=== PATIENT | female | born 1950 | race Caucasian/White ===

== ENCOUNTER 2016-11-11 02:15 | Emergency (ER) | payer BC, OTHER ==
[2016-11-11 02:32] LABS: Hematocrit 38 % (35-47); Hemoglobin 12.7 g/dl (12.0-16.0); Mean Corpuscular HGB Conc 34 g/dl (31-36); Mean Corpuscular Hemoglobin 28 pg (27-31); Mean Corpuscular Volume 82 fL (80-97); Mean Platelet Volume 9 um3 (7.4-10.4); Red Blood Count 4.56 10^6/ul (4.0-5.4); Red Cell Distribution Width 13 % (10.5-15); White Blood Count 7.3 10^3/ul (3.5-10.8)
[2016-11-11 02:49] LABS: Albumin 4.4 g/dL (3.2-5.2); BUN/Creatinine Ratio 28.8 (8-20); Calcium 9.7 mg/dL (8.6-10.3); EGFR African American 115.6 (>60); EGFR Non-African American 89.9 (>60); Globulin 2.7 g/dL (2-4); Potassium 4.2 mmol/L (3.5-5.0); Total Bilirubin 0.5 mg/dL (0.2-1.0); Total Protein 7.1 g/dL (6.4-8.9)
--- NOTE | 2016-11-11 03:31 | ED ---
Elie Jacob Salem, scribed for Nancy Figueredo MD on 11/11/16 at 0226 . HPI Chest Pain - HPI Summary HPI Summary: Patient is a 66 y/o female who presents to the ED with intermittent CP since 2030 today. She reports tightness in the throat for 10-15 minutes at 2030 and for 20 minutes at 0030. She denies calf pain or pain radiating into her arm or back. She denies previous DVT, PE, or recent traveling. She received [employer] per EMS. PMHx is significant for hyperthyroidism. - History of Current Complaint Time Seen by Provider: 11/11/16 02:25 Hx Obtained From: Patient Onset/Duration: Started Hours Ago Timing: Intermittent Initial Severity: Moderate Current Severity: Moderate Chest Pain Radiates: No Aggravating Factor(s): Nothing Alleviating Factor(s): Nothing Associated Signs and Symptoms: Positive: Chest Pain, Other: - No calf pain. PMH/Surg Hx/FS Hx/Imm Hx Endocrine/Hematology History: Denies: Hx Diabetes Cardiovascular History: Denies: Hx Deep Vein Thrombosis, Hx Embolism Musculoskeletal History: Denies: Hx Osteoporosis - Cancer History Hx Chemotherapy: No Hx Radiation Therapy: No - Family History Known Family History: Positive: Cardiac Disease - Father [place] at 45 y/o. , Diabetes - Father. - Social History Lives: With Family - . Alcohol Use: Occasionally Hx Tobacco Use: No Review of Systems Positive: Chest Pain Musculoskeletal: Other - No calf pain or radiating pain. All Other Systems Reviewed And Are Negative: Yes Physical Exam Triage Information Reviewed: Yes Vital Signs On Initial Exam: Temp Pulse Resp BP SpO2 FiO2 Vital Signs Reviewed: Yes Appearance: Positive: Well-Appearing, No Pain Distress Skin: Positive: Warm, Skin Color Reflects Adequate Perfusion, Dry Eyes: Positive: EOMI, IVON Neck: Positive: Supple, Nontender Respiratory/Lung Sounds: Positive: Clear to Auscultation, Breath Sounds Present. Negative: Rales, Rhonchi, Wheezes Cardiovascular: Positive: RRR. Negative: Murmur, Rub Abdomen Description: Positive: Nontender, Soft. Negative: Distended, Guarding Bowel Sounds: Positive: Present Musculoskeletal: Positive: Strength/ROM Intact. Negative: Edema Left, Edema Right Neurological: Positive: Sensory/Motor Intact, Alert, Oriented to Person Place, Time, CN Intact II-III Psychiatric: Positive: Affect/Mood Appropriate Diagnostics - Vital Signs Vital Signs Temp Pulse Resp BP Pulse Ox 11/11/16 03:02 97.2 F 11/11/16 03:00 63 22 97 11/11/16 02:50 97.6 F 62 18 114/60 95 11/11/16 02:30 66 22 114/60 99 11/11/16 02:23 67 14 97 - Laboratory Lab Results: Lab Results 11/11/16 11/11/16 11/11/16 Range/Units 02:20 02:20 02:20 WBC 7.3 (3.5-10.8) 10^3/ul RBC 4.56 (4.0-5.4) 10^6/ul Hgb 12.7 (12.0-16.0) g/dl Hct 38 (35-47) % MCV 82 (80-97) fL MCH 28 (27-31) pg MCHC 34 (31-36) g/dl RDW 13 (10.5-15) % Plt Count 188 (150-450) 10^3/ul MPV 9 (7.4-10.4) um3 Neut % (Auto) 54.5 (38-83) % Lymph % (Auto) 33.5 (25-47) % [place] % (Auto) 8.7 (1-9) % Eos % (Auto) 2.3 (0-6) % Baso % (Auto) 1.0 (0-2) % Absolute Neuts (auto) 4.0 (1.5-7.7) 10^3/ul Absolute Lymphs (auto) 2.5 (1.0-4.8) 10^3/ul Absolute Monos (auto) 0.6 (0-0.8) 10^3/ul Absolute Eos (auto) 0.2 (0-0.6) 10^3/ul Absolute Basos (auto) 0.1 (0-0.2) 10^3/ul Absolute Nucleated RBC 0 10^3/ul Nucleated RBC % 0 Sodium 137 (133-145) mmol/L Potassium 4.2 (3.5-5.0) mmol/L Chloride 102 (101-111) mmol/L Carbon Dioxide 30 (22-32) mmol/L Anion Gap 5 (2-11) mmol/L BUN 19 (6-24) mg/dL Creatinine 0.66 (0.51-0.95) mg/dL Est GFR ( Amer) 115.6 (>60) Est GFR (Non-Af Amer) 89.9 (>60) BUN/Creatinine Ratio 28.8 H (8-20) Glucose 89 (70-100) mg/dL Lactic Acid 0.5 (0.5-2.0) mmol/L Calcium 9.7 (8.6-10.3) mg/dL Total Bilirubin 0.50 (0.2-1.0) mg/dL AST 24 (13-39) U/L ALT 18 (7-52) U/L Alkaline Phosphatase 69 (34-104) U/L Troponin I 0.00 (<0.04) ng/mL Total Protein 7.1 (6.4-8.9) g/dL Albumin 4.4 (3.2-5.2) g/dL Globulin 2.7 (2-4) g/dL Albumin/Globulin Ratio 1.6 (1-3) Result Diagrams: 11/11/16 02:20 11/11/16 02:20 Lab Statement: Any lab studies that have been ordered have been reviewed, and results considered in the medical decision making process. - EKG 0214 EKG Interpretation: NSR @ 64 bpm. Re-Evaluation - Re-Evaluation First Eval Re-Evaluation Time: 03:27 Change: Improved Chest Pain Course/Dx - Course Course Of Treatment: 66 yo female with one risk factor for cp, ekg normal, first trop neg. 2nd trop will be at 6am pt will be signed out to Dr. Hinton and will go home if it is negative. - Diagnoses Provider Diagnoses: Chest pain Discharge - Discharge Plan Condition: Stable Disposition: OTHER Discharge Disposition Comment: disposition to be determined by Dr. Hinton The documentation as recorded by the Elie dick Salem accurately reflects the service I personally performed and the decisions made by , Nancy Figueredo MD.
--- NOTE | 2016-11-11 07:52 | RAD ---
INDICATION: Chest pain. COMPARISON: There are no prior studies available for comparison. TECHNIQUE: A portable view of the chest was obtained. FINDINGS: Cardiac and mediastinal contours appear to be within normal limits. The lungs are underinflated and clear. No pleural effusion is seen. IMPRESSION: NO EVIDENCE FOR ACUTE DISEASE.
[2016-11-11 08:58] VITALS: BP 110/57
== END 2016-11-11 08:36 | disposition home or self-care (01) ==
LOC: ED 02:15
DX: R07.9 Chest pain, unspecified (principal)
CPT/HCPCS: 36415; 71010; 80053; 83605; 84484; 85025; 93005; 99284

== ENCOUNTER 2019-01-08 10:33 | Day surgery (SDC) | payer MEDICARE, BC ==
--- NOTE | 2019-01-03 10:40 | HP ---
PREOPERATIVE HISTORY AND PHYSICAL: DATE OF ADMISSION/SURGERY: 01/08/19 ATTENDING PHYSICIAN: Dr. Linda Day* (KIMBERLY Canales). CHIEF COMPLAINT: Left thumb pain. HISTORY OF PRESENT ILLNESS: The patient is a 68-year-old female, who injured her left thumb when she was walking her puppy and fell on uneven snow jamming her left thumb. Date of injury 11/09/18. Since this time, she has had persistent pain, swelling, and difficulty grasping and pinching. She states the pain is roughly 5/10. She has not been wearing a brace. She denies numbness or tingling. She denies other bodily injury upon her fall. She was evaluated by Dr. Day on 01/02/19 and was found to have an ulnar collateral ligament tear of the left thumb. It was recommended she undergo surgical fixation of this injury and she has elected to proceed. Surgery is scheduled for 01/08/[address] Day. PAST MEDICAL HISTORY: Significant for osteoarthritis in her hands, hypothyroidism. PAST SURGICAL HISTORY: , 04/15/80. She denies prior history of pulmonary embolism or DVT. Denies anesthesia complications. CURRENT MEDICATIONS: 1. Levothyroxine 100 mcg 1 p.o. daily. 2. Multivitamin p.o. daily. 3. Fish oil 500 mg 1 tablet p.o. twice daily. 4. Acidophilus 100 mg 1 capsule daily. 5. GenTeal eye drops and Systane eye drops daily. 6. Ciclopirox solution 8% daily for foot fungus. 7. Xiidra 2 drops daily for dry eye. ALLERGIES: To ADHESIVES. She denies latex allergy. FAMILY HISTORY: Significant for diabetes, heart disease, hypertension, rheumatoid arthritis, MS, and lupus. SOCIAL HISTORY: The patient lives with her spouse. She drinks roughly 7 to 9 alcoholic beverages per week. She exercises regularly. She is right-hand dominant. She works as a [employer]. REVIEW OF SYSTEMS: Negative for cephalic, cardiovascular, respiratory, gastrointestinal, genitourinary, other musculoskeletal, skin, neurologic, endocrine, or hematologic symptoms. PHYSICAL EXAMINATION GENERAL: The patient is alert and oriented x3, in no acute distress, pleasant and cooperative, appropriate dress and affect. VITAL SIGNS: Height 63 inches, weight 129 pounds. BP 120/80, respirations 14, temperature 96.5. Pain level 5. BMI 22.8. HEENT: PERRLA. LUNGS: Clear to auscultation without wheeze. HEART: Regular rate and rhythm without murmur. ABDOMEN: Normoactive bowel sounds x4 quadrants. No tenderness. EXTREMITIES: Full circulation, sensation throughout both upper and lower extremities. Examination of the left upper extremity/left thumb: There is swelling at the MP joint. She has marked instability of the ulnar collateral ligament, tenderness to palpation at the insertion of the UCL. She has some tenderness at the CMC joint. She has flexion of the IP and MP joints without much difficulty. She has full extension of her thumb. Her circulation and sensation is intact. Her skin is intact. IMPRESSION: Left thumb ulnar collateral ligament tear. PLAN: The patient has failed conservative management and she continues to have significant pain and swelling. She has elected to proceed with ulnar collateral ligament repair with Dr. Day on 01/08/19. Risks and benefits of the procedure were fully discussed by Dr. Day today. She will follow up in roughly 10 days postoperatively. KIMBERLY CANALES [id number]/[facility] #: [id number] KILEY
[~2019-01-08 10:33] MED LIST: Buffered Lidocaine 1% SYRIN* 1 ML/SYRINGE INTRADERM ONE; Dexamethasone TAB* 4 MG PO ONE; DiMENhydriNATE IV* 50 MG/ML VIAL IV PUSH PRN; Famotidine IV* 10 MG/ML 2 ML (20 mg) IV ONE; HYDROmorphone INJ1* 1 MG/ML SYRINGE IV PRN; Lactated Ringers 1000 ML Bag* 1,000 ML IV SCH; Naloxone* 0.4 MG/ML 1 ML VIAL IV PRN; Ondansetron TAB* 4 MG PO ONE; PROCHLORPERAZINE INJ 5 MG/ML 2 ML VIAL IV PRN; Scopolamine 1.5 mg* PATCH TRANSDERM PRN; fentaNYL* 50 MCG/ML 2 ML VIAL (100 MCG VIAL) IV PRN; oxyCODONE/Acetamin 5/325 MG* TAB PO PRN
[2019-01-08] MEDS ORDERED: Ondansetron ODT TAB* 4 MG ONE (10:50)
[2019-01-08] MEDS ORDERED: Dexamethasone TAB* 4 MG ONE (10:50)
[2019-01-08] MEDS ORDERED: ceFAZolin 2 GM PREMIX in ORs 2 GM/50 ML BAG IVPB ONE (10:50)
[2019-01-08] MEDS ORDERED: Famotidine IV* 10 MG/ML 2 ML (20 mg) ONE (10:50)
[2019-01-08] MEDS ORDERED: Midazolam* 1 MG/ML 5 ML VIAL (5 MG) ONE (11:17)
[2019-01-08] MEDS ORDERED: fentaNYL* 50 MCG/ML 2 ML VIAL (100 MCG VIAL) ONE (11:17)
[2019-01-08] MEDS ORDERED: KETAMINE HCL* 50 MG/ML 10 ML VIAL ONE (11:17)
[2019-01-08] MEDS ORDERED: Lidocaine 0.5%* 50 ML SDV ONE (11:38)
[2019-01-08] MEDS ORDERED: Bupivacaine 0.5% SDV PF* 30ML VIAL ONE (11:56)
[2019-01-08] MEDS ORDERED: Propofol* 10 MG/ML 20 ML BTL ONE (12:26)
[2019-01-08] MEDS ORDERED: Ketorolac INJ* 30 MG/ML 1 ML VIAL ONE (12:26)
[2019-01-08] MEDS ORDERED: Lidocaine 2% PF * 5 ML VIAL ONE (12:26)
[2019-01-08 13:38] VITALS: BP 99/43
--- NOTE | 2019-01-09 23:11 | OP ---
DATE OF OPERATION: 01/08/19 [facility] DATE OF : 52 SURGEON: Linda Day MD. WATER TREATMENT PLANT REPAIRER: KIMBERLY Vargas. ANESTHESIA: IV regional. PRE-OP DIAGNOSIS: Left thumb ulnar collateral ligament tear. POSTS-OP DIAGNOSIS: Left thumb ulnar collateral ligament tear. OPERATIVE PROCEDURE: Left thumb ulnar collateral ligament repair. ESTIMATED BLOOD LOSS: Zero. TOURNIQUET TIME: About 25 minutes. INDICATION FOR PROCEDURE: Kinza is a 68-year-old female who has pain in her left thumb after an injury with her dog's leash. This occurred about 5 weeks ago. She saw her primary care doctor. They did an x-ray and it was negative for fracture. She was evaluated in my office several weeks later because of persistent pain and instability of her thumb. She has been wearing a brace. On physical exam, she had marked radial deviation with stressing her ulnar collateral ligament and an obvious ulnar collateral ligament tear. She presents for ulnar collateral ligament repair. DESCRIPTION OF PROCEDURE: The patient was brought to the operating, was given an IV regional anesthetic with a tourniquet around her left forearm. The skin of the left hand and forearm were prepped and draped in usual sterile fashion. A longitudinal incision made on the ulnar aspect of the MP joint and we dissected bluntly through the subcutaneous tissue. Branches of the radial sensory nerve were located and were retracted by the actuarial assistant, Jeannine Cr. The adductor aponeurosis was incised longitudinally and there was a completely ruptured ulnar collateral ligament, which was in good condition. The insertion on the proximal phalanx was roughened with a curette and then a hole was drilled for a single mini Mitek suture anchor. The anchor was placed and the sutures were used to reapproximate the ligament to the proximal phalanx. The adductor aponeurosis was then repaired over top of the ligament with 2-0 Ethibond suture. Skin edges were reapproximated with 4-0 nylon suture. The wound was dressed with Xeroform, 4x4, Webril and a thumb spica splint. The patient tolerated the procedure well and was brought to the recovery room in good condition. [id number]/[facility] #: [id number] [facility]
[2019-01-11] MEDS ORDERED: Scopolamine PATCH Remove* 1 NOTE MISC PATCH OFF ONE (05:59)
== END 2019-01-08 13:32 | disposition home or self-care (01) ==
LOC: OREAST 10:33
PROVIDERS: ATTEND Orthopaedic Surgery
DX: S63.642A Sprain of metacarpophalangeal joint of left thumb, initial encounter (principal); E03.9 Hypothyroidism, unspecified; W19.XXXA Unspecified fall, initial encounter; Y93.K1 Activity, walking an animal; Y92.9 Unspecified place or not applicable
CPT/HCPCS: A9270-GY; C1713; J0690; J1885; J2250; J2704; J3010; J3490; J8540

== ENCOUNTER 2019-01-21 18:46 | Emergency (ER) | payer MEDICARE, BC ==
--- OUTSIDE RECORDS SUMMARY | 2019-01-21 18:55 | XMS REPORT | Continuity of Care Document ---
:1950 External Reference #:[id number] Author Name Eboni Kingsley Care Team Providers Name Role Phone Yanira Palafox MD Primary Care Physician Unavailable Payers Date Identification Numbers Payment Provider Subscriber Policy Number: [id number] Medicare Kinza Castorena PayID: [id number] [address] [place] [address] Policy Number: [id number] [facility] Ian Castorena PayID: [id number] [address] [place] [address] Advance Directives Description No Information Available Problems Description No Information Family History Date Family Member(s) Observation Comments General Diabetes General Heart Disease General Hypertension General Rheumatoid Arthritis General Multiple Sclerosis (MS) General Lupus Social History Type Date Description Comments Sex Unknown Lives With Spouse Occupation Currently Working ETOH Use Occasionally consumes alcohol Tobacco Use Start: Unknown Patient has never smoked Smoking Status Reviewed: 01/17/19 Patient has never smoked Exercise Type/Frequency Exercises regularly Allergies, Adverse Reactions, Alerts Active Allergies Reaction Severity Comments Date Latex 04/18/2017 Medications Active Medications SIG Qnty Indications Ordering Date Provider Martin Unknown 5% Solution Levothyroxine Sodium 1 by mouth every day Unknown 100mcg Tablets Multi Vitamin 1 by mouth every day Unknown Tablets Fish Oil 1 by mouth twice a Unknown 500mg Capsules day(pt is now taking lovaza) Cod Liver Oil 1 by mouth every day Unknown 1000mg Capsules Acidophilus take one Unknown 100mg capsule/tablet daily Capsules by mouth with lactobacillus Ciclopirox Unknown Genteal Unknown History Medications [place] one tab by mouth 15tabs Linda Day, 01/08/2019 - 5-325mg every 4-6 hours M.D. 01/16/2019 Tablets as needed pain Medications Administered in Office Medication SIG Qnty Indications Ordering Provider Date Celestone 3 mg and 3mg Noni BlountBrantSky, 08/09/2010 Injection M.DUrsula Immunizations Description No Information Available Vital Signs Date Vital Result Comment 01/17/2019 10:26am Height 63 inches 5'3" Weight 129.00 lb BP Systolic 118 mmHg BP Diastolic 78 mmHg Respiratory Rate 14 /min Body Temperature 96.3 F Pain Level 0 BMI (Body Mass Index) 22.8 kg/m2 01/02/2019 11:28am Height 63 inches 5'3" Weight 129.00 lb BP Systolic 120 mmHg BP Diastolic 80 mmHg Respiratory Rate 14 /min Body Temperature 96.5 F Pain Level 5 BMI (Body Mass Index) 22.8 kg/m2 07/04/2017 1:19pm Height 63 inches 5'3" Weight 127.00 lb Heart Rate 63 /min Respiratory Rate 16 /min Body Temperature 97.7 F Pain Level 3 BMI (Body Mass Index) 22.5 kg/m2 05/30/2017 1:55pm Height 63 inches 5'3" Weight 127.00 lb BP Systolic 110 mmHg BP Diastolic 69 mmHg Respiratory Rate 15 /min Pain Level 3 BMI (Body Mass Index) 22.5 kg/m2 04/18/2017 3:28pm Height 63 inches 5'3" Weight 127.00 lb BP Systolic 106 mmHg BP Diastolic 62 mmHg Respiratory Rate 18 /min Body Temperature 97.8 F Pain Level 3 BMI (Body Mass Index) 22.5 kg/m2 Results Description No Information Available Procedures Date Code Description Status 08/09/2010 36793 Rad Exam; Hand Comp Completed 08/09/2010 14231 Inject/Drain Joint/Bursa Small W/O US Completed Encounters Type Date Location Provider Dx Diagnosis Office Visit 01/02/2019 [facility] S63.642A Sprain of 11:00a [facility] metacarpophalangeal C.M.A. joint of left thumb, init Office Visit 07/04/2017 [facility]opedic Jai Bella S92.514A Nondisp fx of proximal 1:15p [facility] phalanx of right lesser C.M.A. toe(s), init Office Visit 05/30/2017 [facility]opedic Jai Bella S92.514D Nondisp fx of prox 1:45p [facility] phalanx of r less C.M.A. toe(s), 7thD Office Visit 04/18/2017 [facility]opedic Jai Bella S92.514A Nondisp fx of proximal 3:00p [facility] phalanx of right lesser C.M.A. toe(s), init Office Visit 08/09/2010 Orthopedic Noni 715.94 Osteoarthrosis Unspec 10:00a [facility] V[facility] Or Localized Hand AshlieMElijah Vick Plan of Treatment Future Appointment(s):02/07/2019 9:45 am - Linda Day M.D. at [facility]01/17/2019 - Linda Day M.D.S63.642D Sprain of metacarpophalangeal joint of left thumb, subsequenFollow up:Follow up: 3 weeks
--- OUTSIDE RECORDS SUMMARY | 2019-01-21 18:55 | XMS REPORT | Continuity of Care Document ---
:1950 External Reference #:[id number] Author Name Eboni Kingsley Care Team Providers Name Role Phone Yanira Palafox MD Primary Care Physician Unavailable Payers Date Identification Numbers Payment Provider Subscriber Policy Number: [id number] Medicare Kinza Castorena PayID: [id number] [address] [place] [address] Policy Number: [id number] [facility] Ian Castorena PayID: [id number] [address] [place] [address] Advance Directives Description No Information Available Problems Description No Information Family History Date Family Member(s) Observation Comments General Diabetes General Heart Disease General Hypertension General Rheumatoid Arthritis General Multiple Sclerosis (MS) General Lupus Social History Type Date Description Comments Sex Unknown Lives With Spouse Occupation Currently Working ETOH Use Occasionally consumes alcohol Tobacco Use Start: Unknown Patient has never smoked Smoking Status Reviewed: 01/02/19 Patient has never smoked Exercise Type/Frequency Exercises [...] mouth with lactobacillus Ciclopirox Unknown Genteal Unknown Medications Administered in Office Medication SIG Qnty Indications Ordering Provider Date Celestone 3 mg and 3mg Noni Vieira, 08/09/2010 Injection M.D. Immunizations Description No Information Available Vital Signs Date Vital Result Comment 01/02/2019 11:28am Height 63 inches 5'3" Weight [...] Available Procedures Date Code Description Status 08/09/2010 51000 Rad Exam; Hand Comp Completed 08/09/2010 27296 Inject/Drain Joint/Bursa Small W/O US Completed Encounters Type Date Location Provider Dx Diagnosis Office Visit 07/04/2017 Orthopedic Jai Bella S92.514A Nondisp fx of 1:15p [facility] proximal phalanx of C.M.A. right lesser toe(s), init Office Visit 05/30/2017 [facility]opedic Jai Bella S92.514D Nondisp fx of prox 1:45p [facility] phalanx of r less C.M.A. toe(s), 7thD Office Visit 04/18/2017 Orthopedic Jai Bella S92.514A Nondisp fx of 3:00p [facility] proximal phalanx of C.M.A. right lesser toe(s), init Office Visit 08/09/2010 Orthopedic Noni 715.94 Osteoarthrosis 10:00a [facility] Je Vieira Or [facility]ick [facility] Plan of Treatment Future Appointment(s):01/08/2019 11:45 am - Linda Day M.D.01/17/2019 10: 15 am - Linda Day M.D. at [facility]01/02/2019 - Linda Day M.D.S63.642A Sprain of metacarpophalangeal joint of left thumb , initial eFollow up:Follow up: 9-10 days postop
[2019-01-21 18:58] VITALS: BP 123/62
--- NOTE | 2019-01-21 19:16 | UC ---
UC General HPI - HPI Summary HPI Summary: 68-year-old woman comes in with a chief complaint of left facial swelling. Several days ago noticed some swelling on the inside of her cheek on the left adjacent to her posterior lower molar. No fevers or chills. Patient noticed the pain at the site and also externally near the angle of jaw. Pain does radiate up towards the left ear. Pain is worse with palpation and movement however she does not believe there is any tooth pain. No difficulty swallowing. - History of Current Complaint Chief Complaint: UCDentalProblem Stated Complaint: FACIAL SWELLING Time Seen by Provider: 01/21/19 18:54 Pain Intensity: 6 - Allergy/Home Medications Allergies/Adverse Reactions: Allergies Allergy/AdvReac Type Severity Reaction Status Date / Time adhesive Allergy Rash Verified 01/21/19 18:58 Home Medications: Home Medications Ibuprofen TAB* [Advil TAB*] 400 mg PO ONCE PRN 01/21/19 [History Confirmed 01/21] PMH/Surg Hx/FS Hx/Imm Hx Previously Healthy: Yes Endocrine History: Hypothyroidism - Surgical History Surgical History: Yes Surgery Procedure, Year, and Place: 1979. LUMPECTOMY RIGHT BREAST 20 YEARS AGO [facility]. REATTACHED LIGAMENT LEFT THUMB 2018 - Family History Known Family History: Positive: Cardiac Disease - Father [place] at 45 y/o. , Diabetes - Father. Negative: Blood Disorder - Social History Alcohol Use: Occasionally Alcohol Amount: 1 beer daily aprox Substance Use Type: None Smoking Status (MU): Never Smoked Tobacco Have You Smoked in the Last Year: No Review of Systems All Other Systems Reviewed And Are Negative: Yes Constitutional: Positive: Negative Skin: Positive: Negative Eyes: Positive: Negative ENT: Positive: Other - SEE HPI Respiratory: Positive: Negative Cardiovascular: Positive: Negative Gastrointestinal: Positive: Negative Motor: Positive: Negative Neurovascular: Positive: Negative Musculoskeletal: Positive: Negative Neurological: Positive: Negative Psychological: Positive: Negative Is Patient Immunocompromised?: No Physical Exam Triage Information Reviewed: Yes Appearance: Well-Appearing, No Pain Distress, Well-Nourished Vital Signs: Initial Vital Signs Temp 98.2 F 01/21/19 18:53 Pulse 66 01/21/19 18:53 Resp 16 01/21/19 18:53 BP 123/62 01/21/19 18:53 Pulse Ox 100 01/21/19 18:53 Vital Signs Reviewed: Yes Eye Exam: Normal Eyes: Positive: Conjunctiva Clear ENT: Positive: TMs normal, Other - Inside the left cheek there is an area swelling. No obvious dental caries. Oral pharynx is open uvula is midline. I do not see any ulcerations on the mucosa. Externally patient is tender to palpation over the left parotid gland. No tenderness of the left tragus. Ear canal and TM appear normal. No tenderness of the TMJs. No rash.. Negative: Tonsillar swelling, Tonsillar exudate, Dental tenderness Dental: Negative: Gross Decay/Caries @ Neck: Positive: Supple Respiratory: Positive: Lungs clear, Normal breath sounds, No respiratory distress Cardiovascular: Positive: RRR Musculoskeletal Exam: Normal Musculoskeletal: Positive: Strength Intact, ROM Intact Neurological Exam: Normal Neurological: Positive: Alert, Muscle Tone Normal Psychological Exam: Normal Psychological: Positive: Age Appropriate Behavior Skin Exam: Normal Course/Dx - Course Course Of Treatment: Starting Augmentin to treat for potential parotid gland cause of the swelling and pain. Also that would cover any dental infection. I did not see any mucosal ulceration. It's not completely clear that the parotid gland is the cause of the patient's pain therefore planning on a follow-up with ENT. This was all discussed with the patient. - Diagnoses Provider Diagnosis: Swelling of left side of face Discharge - Sign-Out/Discharge Documenting (check all that apply): Patient Departure All imaging exams completed and their final reports reviewed: No Studies - Discharge Plan Condition: Stable Disposition: HOME Prescriptions: Amoxicillin/Clavulanate TAB* [Augmentin TAB 875*] 875 mg PO BID #20 tab Patient Education Materials: Sialoadenitis (ED) Referrals: Yanira Palafox MD [Primary Care Provider] - Mesfin Lundberg MD [Medical Doctor] - Additional Instructions: FOLLOW UP WITH ENT IF NOT COMPLETELY IMPROVED. GET RECHECKED SOONER IF YOUR CONDITION WORSENS OR ANY QUESTIONS OR CONCERNS. - Billing Disposition and Condition Condition: STABLE Disposition: Home
== END 2019-01-21 19:25 | disposition home or self-care (01) ==
LOC: UCEAST 18:46
DX: R22.0 Localized swelling, mass and lump, head (principal); H92.02 Otalgia, left ear; E03.9 Hypothyroidism, unspecified; Z91.048 Other nonmedicinal substance allergy status
CPT/HCPCS: 99212; G0463